=== PATIENT | male | born 1965 | race Caucasian/White ===

== ENCOUNTER 2021-06-15 10:37 | Inpatient (IN) | payer OTHER ==
[~2021-06-15] VITALS: Ht 180.3 cm; Wt 117.9 kg
[2021-06-15 11:46] LABS: BUN/CREAT RATIO (CALC) 5.9 RATIO; CREATININE 1.52 mg/dL (0.67-1.17); POTASSIUM 2.6 mmol/L (3.5-5.1)
[2021-06-15 11:55] LABS: LACTIC ACID 2.6 mmol/L (0.4-1.9)
[2021-06-15 11:56] LABS: FT4 (FREE T4) 1.4 ng/dL (0.76-1.46); MAGNESIUM 1.2 mg/dL (1.8-2.4)
[2021-06-15 14:14] LABS: BILIRUBIN NEGATIVE (NEGATIVE); BLOOD NEGATIVE Ery/uL (NEGATIVE); CLARITY CLEAR (CLEAR); COLOR YELLOW (YELLOW); GLUCOSE (U) NORMAL (NORMAL); LEUKOCYTES NEGATIVE Leu/uL (NEGATIVE); NITRITE NEGATIVE (NEGATIVE); PROTEIN NEGATIVE (NEGATIVE); SPECIFIC GRAVITY <=1.005 (1.001-1.030); UROBILINOGEN 0.2 mg/dL (0.2-1.0)
[2021-06-15] MEDS ORDERED: WELLBUTRIN XL150 MG PO (17:43)
[2021-06-15] MEDS ORDERED: ONDANSETRON ODT4 MG PO (17:43)
[2021-06-15 17:44] LABS: ALBUMIN 2.3 g/dL (3.4-5.0); BILIRUBIN - TOTAL 1.3 mg/dL (0.2-1.0); BUN/CREAT RATIO (CALC) 7.1 RATIO; CREATININE 1.26 mg/dL (0.67-1.17); GLOBULIN (CALCULATION) 3.4 g/dL; MAGNESIUM 1.8 mg/dL (1.8-2.4); POTASSIUM 2.7 mmol/L (3.5-5.1); TOTAL PROTEIN 5.7 g/dL (6.4-8.2)
[2021-06-15] MEDS ORDERED: LEXAPRO20 MG PO (17:44)
[2021-06-15] MEDS ORDERED: DIAZEPAM 5MG TAB5 MG PO (17:44)
[2021-06-15] MEDS ORDERED: LISINOPRIL40 MG PO (17:45)
[2021-06-15] MEDS ORDERED: NORVASC5 MG PO (17:45)
[2021-06-15] MEDS ORDERED: LIPITOR20 MG PO (17:46)
[2021-06-15] MEDS ORDERED: FENOFIBRATE134 MG PO (17:46)
[2021-06-16 06:45] LABS: BUN/CREAT RATIO (CALC) 7.3 RATIO; CREATININE 1.1 mg/dL (0.67-1.17); POTASSIUM 2.6 mmol/L (3.5-5.1)
[2021-06-16 07:26] LABS: BASOPHIL 0.4 % (0-2); EOSINOPHIL 1.3 % (0-5); LYMPHOCYTE 16.6 % (15-48); MCH 31.8 pg (25.0-31.0); MCHC 33.5 g/dL (32.0-36.0); MCV 94.9 fL (78.0-100.0); MONOCYTE 6.7 % (0-12); MPV 8.6 fL (6.0-9.5); NEUTROPHIL 73.7 % (41-80); NRBC 0; PLT 161 K/uL (150-400); RBC 2.74 M/uL (4.70-6.00); RDW 12.6 % (11.5-14.0); WBC 4.5 K/uL (4.0-10.5)
[2021-06-16 07:43] LABS: HGB 8.7 g/dl (13.2-18.0)
[2021-06-16 08:28] LABS: HCT 25.6 % (42.0-52.0); HGB 8.7 g/dL (13.2-18.0); RETICULOCYTE COUNT 0.4 % (1.0-2.0)
[2021-06-16 08:42] LABS: WBC 7.8 K/uL (4.0-10.5)
[2021-06-16 08:43] LABS: HGB 11.1 g/dl (13.2-18.0); RBC 3.47 M/uL (4.70-6.00)
[2021-06-16 08:44] LABS: MCHC 32.6 g/dL (32.0-36.0)
[2021-06-16 08:45] LABS: MPV 9.1 fL (6.0-9.5); PLT 318 K/uL (150-400); RDW 13.1 % (11.5-14.0)
[2021-06-16 08:46] LABS: LYMPHOCYTE 12.3 % (15-48); MONOCYTE 4.5 % (0-12); NEUTROPHIL 80.2 % (41-80)
[2021-06-16 08:47] LABS: BASOPHIL 0.8 % (0-2); EOSINOPHIL 1.2 % (0-5)
[2021-06-16 08:50] LABS: NRBC 0.3
[2021-06-16 09:54] LABS: IRON % SATURATION 56.9 %SAT (20-50)
[2021-06-16 18:21] LABS: BUN/CREAT RATIO (CALC) 6.1 RATIO; CREATININE 0.99 mg/dL (0.67-1.17); PHOSPHORUS 2.3 mg/dL (2.6-4.7); POTASSIUM 2.9 mmol/L (3.5-5.1)
[2021-06-17 06:55] LABS: BILIRUBIN - TOTAL 0.9 mg/dL (0.2-1.0); BUN/CREAT RATIO (CALC) 4.2 RATIO; CREATININE 0.96 mg/dL (0.67-1.17); GLOBULIN (CALCULATION) 3.1 g/dL; MAGNESIUM 1.8 mg/dL (1.8-2.4); POTASSIUM 3.2 mmol/L (3.5-5.1); TOTAL PROTEIN 5.1 g/dL (6.4-8.2)
[2021-06-17 08:44] LABS: HCT 28.7 % (42.0-52.0); HGB 9.5 g/dl (13.2-18.0); MCH 32.4 pg (25.0-31.0); MCHC 33.1 g/dL (32.0-36.0); MPV 8.1 fL (6.0-9.5); RBC 2.93 M/uL (4.70-6.00); RDW 12.8 % (11.5-14.0); WBC 4.2 K/uL (4.0-10.5)
[2021-06-17 16:44] LABS: BUN/CREAT RATIO (CALC) 3.3 RATIO; CREATININE 0.9 mg/dL (0.67-1.17); POTASSIUM 4.2 mmol/L (3.5-5.1)
[2021-06-18 06:22] LABS: HCT 25.5 % (42.0-52.0); HGB 8.3 g/dl (13.2-18.0); MCH 31.6 pg (25.0-31.0); MCHC 32.5 g/dL (32.0-36.0); MPV 8.2 fL (6.0-9.5); RBC 2.63 M/uL (4.70-6.00); RDW 12.9 % (11.5-14.0)
[2021-06-18 06:51] LABS: BUN/CREAT RATIO (CALC) 3.6 RATIO; CREATININE 0.83 mg/dL (0.67-1.17); POTASSIUM 4.4 mmol/L (3.5-5.1)
[2021-06-19] MEDS ORDERED: MIRTAZAPINE15 MG PO (17:43)
[2021-06-19] MEDS ORDERED: POTASSIUM CHLO20 ME2 PO (17:43)
[2021-06-19] MEDS ORDERED: PROTONIX 40MG T40 MG PO (17:43)
[2021-06-19] MEDS ORDERED: ONDANSETRON ODT4 MG PO (17:43)
== END 2021-06-19 18:17 | disposition home or self-care (01) | DRG 683 ==
LOC: FER 10:37 → FMS 14:42
PROVIDERS: Emergency Medicine; Nurse Practitioner Acute Care; Surgery; ADMIT Internal Medicine
PROC: 0DB78ZX Excision of Stomach, Pylorus, Via Natural or Artificial Opening Endoscopic, Diagnostic (ICD-10-PCS; principal; 2021-06-19 13:45)
DX: N17.9 Acute kidney failure, unspecified (principal); D62 Acute posthemorrhagic anemia; E44.0 Moderate protein-calorie malnutrition; K76.6 Portal hypertension; E87.1 Hypo-osmolality and hyponatremia; E87.2 Acidosis; Z20.822 Contact with and (suspected) exposure to COVID-19; F10.10 Alcohol abuse, uncomplicated; K29.70 Gastritis, unspecified, without bleeding; E83.42 Hypomagnesemia; E83.51 Hypocalcemia; I95.1 Orthostatic hypotension; K76.0 Fatty (change of) liver, not elsewhere classified; N28.1 Cyst of kidney, acquired; N20.0 Calculus of kidney; E66.9 Obesity, unspecified; D50.9 Iron deficiency anemia, unspecified; K31.89 Other diseases of stomach and duodenum; K31.819 Angiodysplasia of stomach and duodenum without bleeding; E87.6 Hypokalemia; I10 Essential (primary) hypertension; E78.5 Hyperlipidemia, unspecified; E86.0 Dehydration; F41.9 Anxiety disorder, unspecified; F32.9 Major depressive disorder, single episode, unspecified; F32.A Depression, unspecified; Z68.36 Body mass index [BMI] 36.0-36.9, adult; Z90.49 Acquired absence of other specified parts of digestive tract; Z79.899 Other long term (current) drug therapy
CPT/HCPCS: 36415; 80048; 80053; 81003; 82607; 82728; 83540; 83550; 83605; 83615; 83735; 84100; 84145; 84439; 84443; 84484; 85014; 85018; 85025; 93005; C9113; G0480; J2250; J2916; J3475; J3480; J7030; J7040; J7120; U0002